=== PATIENT | female | born 1995 | race Caucasian/White ===

== ENCOUNTER 2018-01-23 13:00 | Outpatient (CLI) | payer BC, SELFPAY ==
[2018-01-23 13:25] VITALS: BMI 30.9
[2018-01-23 14:03] LABS: ROM Internal Control Test YES-OK TO RESULT pt. (Internal QC); ROM Patient Test Negative (Negative)
--- NOTE | 2018-01-23 17:53 | OB.TRI.NOTE ---
History of Present Illness Date of Service: 01/23/18 Was patient seen by the physician?: No Reason For Visit: R/O ROM Date of Service: 01/23/18 Final BIANCA: 03/08/18 Final BIANCA Source: LMP Gestational age: 33 Weeks and 5 Days History of Present Illness: Patient reports she was sitting on the couch and felt a larger gush of fluid come out of vagina. Patient reports she has had copious vaginal discharge with this but she is unsure if her bag of acevedo broke. Denies vaginal bleeding, denies cramping/contractions, denies decreased movement. Home Medications Medication Instructions Recorded Aspirin, Baby 1 tab PO DAILY 01/23/18 Vits [Prenatabs FA ] 1 tablet PO DAILY 01/23/18 Allergies No Known Allergies Allergy (Verified 01/23/18 13:26) - Pertinent Past Medical History Pertinent Past Medical History: Hx of depression - not currently taking medications Otherwise noncontributory Physical Exam Vitals: See nursing exam and vitals NST - FHR Rate Baby A Baseline: 120 Variability:: Moderate Accelerations:: 15 x 15 Decelerations:: None NST Reactive:: Yes, Appropriate for gestational age FHR Category:: Category I Uterine Activity:: Uterine irritability noted on monitor Impression/Plan 22 y/o @ 33+ weeks, R/O PPROM - negative, Category I FHT P: 1) Discharge patient to home 2) [facility] teaching and PTL precautions reviewed Maria Alejandra Nation CNM
--- NOTE | 2018-01-23 18:01 | OB.TRI.HP_ITS ---
History of Present Illness Date of Service: 01/23/18 Was patient seen by the physician?: No Reason For Visit: R/O ROM Date of Service: 01/23/18 Final BIANCA: 03/08/18 Final BIANCA Source: LMP Gestational age: 33 Weeks and 5 Days History of Present Illness: Patient reports she was sitting on the couch and felt a larger gush of fluid come out of vagina. Patient reports she has had copious vaginal discharge with this but she is unsure if her bag of acevedo broke. Denies vaginal bleeding, denies cramping/contractions, denies decreased movement. Home Medications Medication Instructions Recorded Aspirin, Baby 1 tab PO DAILY 01/23/18 Vits [Prenatabs FA ] 1 tablet PO DAILY 01/23/18 Allergies No Known Allergies Allergy (Verified 01/23/18 13:26) - Pertinent Past Medical History Pertinent Past Medical History: Hx of depression - not currently taking medications Otherwise noncontributory Physical Exam Vitals: See nursing exam and vitals NST - FHR Rate Baby A Baseline: 120 Variability:: Moderate Accelerations:: 15 x 15 Decelerations:: None NST Reactive:: Yes, Appropriate for gestational age FHR Category:: Category I Uterine Activity:: Uterine irritability noted on monitor Impression/Plan 22 y/o @ 33+ weeks, R/O PPROM - negative, Category I FHT P: 1) Discharge patient to home 2) [facility] [place] teaching and PTL precautions reviewed Maria Alejandra Nation CNM
== END 2018-01-23 14:35 | disposition home or self-care (01) ==
LOC: WPOUT 13:18 → WP 01-25 13:47
PROVIDERS: Visit Provider Advanced Practice Midwife
DX: Z34.03 Encounter for supervision of normal first pregnancy, third trimester (principal)
CPT/HCPCS: 59025; 59050; 84112; 99218; G0378

== ENCOUNTER 2018-02-15 21:27 | Outpatient (CLI) | payer BC, SELFPAY ==
[2018-02-15 22:12] VITALS: BMI 32.2
[2018-02-15 22:12] LABS: Mucous, Urine 0 SEEN /hpf (<or=2+)
[2018-02-15 22:29] LABS: Color, Urine Yellow (Yellow); Glucose, Dipstick Normal (Normal); Ketone-Dipstick Negative (Negative); Leukocyte Esterase-Dipstick Negative /ul (Negative); Nitrite-Dipstick Negative (Negative); Occult Blood-Urine Negative /ul (Negative); Protein-Dipstick Negative (Negative); Urine Bilirubin Dipstick Negative (Negative); Urine Clarity Cloudy (Clear); Urine Urobilinogen Normal (Normal)
[2018-02-15 22:31] LABS: AST(SGOT) 12 U/L (15-37); Alanine Aminotransfer ALT/SGPT 15 U/L (13-56); Creatinine, Serum 0.69 mg/dL (0.55-1.02); EST Glomerular Filtration Rate 111 mL/min (>60); Est Glom Filt Rate - Afr Amer 134 mL/min (>60); Estimated Creatinine Clearance 94.87 ml/min; Uric Acid 3.3 mg/dL (2.6-6.0)
[2018-02-15 22:32] LABS: Hematocrit 36.5 % (37-47); Hemoglobin 11.9 g/dl (12.0-15.0); Mean Corp Hgb Conc 32.6 g/gl (32-36); Mean Corpuscular Hgb 27.7 pg (27.0-32.0); Mean Corpuscular Volume 84.9 fL (81-99); Mean Platelet Vol. 9.9 fl (6.2-12.0); Platelet Count 160 K/mm3 (150-450); RBC Distribution Width CV 13.6 % (11.6-14.6); RBC Distribution Width SD 41.7 fl (35.1-43.9); White Blood Count 10.1 K/mm3 (4.4-11.0)
[2018-02-15 22:38] LABS: Scan Indicated on CBC? Y/N NO
[2018-02-15 22:41] LABS: Prothrombin Time (Protime)PT. 13.4 SECONDS (11.7-14.9)
[2018-02-15 22:42] LABS: Partial Thromboplast Time 24.5 Seconds (24.1-36.2)
[2018-02-15 22:53] LABS: Amorphous Sediment 2+
[2018-02-15 22:54] LABS: Hyaline Cast 0-5 SEEN /lpf (0-5)
[2018-02-15 22:55] LABS: Bacteria RARE /hpf (None Seen); White Blood Cells 0-5 SEEN /hpf (0-5)
[2018-02-15 22:56] LABS: Red Blood Cells-Urine 0-5 SEEN /hpf (0-5); Transitional Epithelial - Ur 0 SEEN /hpf (0-5)
[2018-02-15 22:57] LABS: Squamous Epithelial Cells - UA 0-5 SEEN /hpf (5-10)
[2018-02-15 23:45] LABS: Protein, Urine (Random) 14.9 mg/dL (<11.9); Protein:Creat Ratio 180 mg/g CRE (0-200)
[2018-02-17 13:52] LABS: 24HR. Urine Creatinine 1.19 g/24 HR (0.70-1.90)
[2018-02-17 17:37] LABS: 24HR. UA Prot. Total Volume 3500 mL; Urine Protein (24 Hour) 7.2 mg/dL (<11.9)
--- NOTE | 2018-03-12 10:38 | OB.TRI.NOTE ---
History of Present Illness Date of Service: 02/15/18 Was patient seen by the physician?: No Reason For Visit: PRE E Date of Service: 02/15/18 Final BIANCA Source: LMP History of Present Illness: Presented to L&D with headache. Took BP and 131/91,138/99, 148/103. Home Medications Medication Instructions Recorded Vits [Prenatabs FA ] 1 tablet PO DAILY 01/23/18 Ferrous Sulfate 325 mg PO DAILY@0800 tablet 02/28/18 Oxycodone [Oxyir] 5 - 10 mg PO Q4H PRN PRN 7 Days 02/28/18 #20 tab Allergies No Known Allergies Allergy (Verified 02/15/18 22:14) NST - FHR Rate Baby A Baseline: 115 Variability:: Moderate Accelerations:: 15 x 15 Decelerations:: None NST Reactive:: Yes FHR Category:: Category I Uterine Activity:: Irregular Impression/Plan A: 22 year old 37w EGA Headache P: 1) Labs normal, NST reactive 2) Start 24hr Urine, return to office in 2 days for evaluation and BP check. Pre-e risks reviewed. 3) NST reactive. BP stable on unit. Aida Ortiz CNM
--- NOTE | 2018-03-12 10:43 | OB.TRI.HP_ITS ---
History of Present Illness Date of Service: 02/15/18 Was patient seen by the physician?: No Reason For Visit: PRE E Date of Service: 02/15/18 Final BIANCA Source: LMP History of Present Illness: Presented to L&D with headache. Took BP and 131/91,138/99, 148/103. Home Medications Medication Instructions Recorded Vits [Prenatabs FA ] 1 tablet PO DAILY 01/23/18 Ferrous Sulfate 325 mg PO DAILY@0800 tablet 02/28/18 Oxycodone [Oxyir] 5 - 10 mg PO Q4H PRN PRN 7 Days 02/28/18 #20 tab Allergies No Known Allergies Allergy (Verified 02/15/18 22:14) NST - FHR Rate Baby A Baseline: 115 Variability:: Moderate Accelerations:: 15 x 15 Decelerations:: None NST Reactive:: Yes FHR Category:: Category I Uterine Activity:: Irregular Impression/Plan A: 22 year old 37w EGA Headache P: 1) Labs normal, NST reactive 2) Start 24hr Urine, return to office in 2 days for evaluation and BP check. Pre -e risks reviewed. 3) NST reactive. BP stable on unit. Aida Ortiz CNM
== END 2018-02-16 00:15 | disposition home or self-care (01) ==
LOC: WPOUT 21:32 → WP 21:32
PROVIDERS: Advanced Practice Midwife; Visit Provider Obstetrics & Gynecology
DX: O26.893 Other specified pregnancy related conditions, third trimester (principal); R51 Headache; Z3A.37 37 weeks gestation of pregnancy
CPT/HCPCS: 36415; 59025; 59050; 81001; 82565; 82570; 84156; 84450; 84460; 84550; 85027; 85610; 85730; 99218; A4216; G0378

== ENCOUNTER 2018-02-24 16:00 | Inpatient (IN) | payer BC, SELFPAY ==
[2018-02-24 17:11] LABS: Hematocrit 36.6 % (37-47); Hemoglobin 11.9 g/dl (12.0-15.0); Mean Corp Hgb Conc 32.5 g/gl (32-36); Mean Corpuscular Hgb 27.4 pg (27.0-32.0); Mean Corpuscular Volume 84.3 fL (81-99); Mean Platelet Vol. 10.5 fl (6.2-12.0); Platelet Count 153 K/mm3 (150-450); RBC Distribution Width CV 13.8 % (11.6-14.6); RBC Distribution Width SD 42.5 fl (35.1-43.9); Red Blood Count 4.34 M/mm3 (4.2-5.4); White Blood Count 10.2 K/mm3 (4.4-11.0)
[2018-02-24 17:14] LABS: Scan Indicated on CBC? Y/N NO
[2018-02-24 17:31] LABS: AST(SGOT) 12 U/L (15-37); Alanine Aminotransfer ALT/SGPT 15 U/L (13-56); Creatinine, Serum 0.57 mg/dL (0.55-1.02); EST Glomerular Filtration Rate 139 mL/min (>60); Est Glom Filt Rate - Afr Amer 168 mL/min (>60); Uric Acid 3.7 mg/dL (2.6-6.0)
[2018-02-24 17:46] LABS: Partial Thromboplast Time 24.1 Seconds (24.1-36.2); Prothrombin Time (Protime)PT. 13.2 SECONDS (11.7-14.9)
[2018-02-24 17:53] VITALS: BMI 32.6
[2018-02-24 18:04] LABS: Protein, Urine (Random) < 6.0 mg/dL (<11.9)
[2018-02-24] MEDS: 0.9% Saline Lock 10 ML Syringe IV (19:11)
[2018-02-24] MEDS: miSOPROStol 25 MCG TABLET VAGINAL ×2 (19:19→23:24)
--- NOTE | 2018-02-24 19:23 | PCM.HP.OB ---
- Problem List (1) Gestational hypertension Status: Acute Qualifiers: Trimester: third trimester Qualified Code(s): O13.3 - Gestational [-induced] hypertension without significant proteinuria, third trimester History Date of Admission: 02/24/18 Final BIANCA: 03/03/18 Final BIANCA Source: US <20 weeks Gestational age: 39 Weeks and 0 Days History of this : Uncomplicated course noted. Transient hypertension noted during 3rd trimester, patient had been monitoring blood pressures at home and blood pressures have ranged from 120-130/80s most days. Over last 4 days patient reports increased pedal and hand swelling and headaches. Today at home, patient reports BP = 120/90 with follow-up blood pressure average in office 149/106. Pertinent Past Medical History: course complicated by chronic anxiety and depression - patient never has been on medication for anxiety but had been on medication from [id number] for depression. Patient has been off medication now for 2 years. Allergies No Known Allergies Allergy (Verified 02/15/18 22:14) Current Medications Acetaminophen (Tylenol) 325 - 650 mg PO Q4H PRN PRN PRN Reason: PAIN OR FEVER >100.4F Al Hydroxide/Mg Hydroxide (Mylanta Ii) 15 - 30 ml PO Q4H PRN PRN PRN Reason: INDIGESTION Citric Acid/Sodium Citrate (Bicitra) 30 ml PO UD PRN Lactated Ringer's () 1,000 mls @ 50 mls/hr IV .Q20H [facility] Misoprostol (Cytotec) 25 mcg VAGINAL Q4H [facility] Stop: 02/25/18 15:01 Last Admin: 02/24/18 19:19 Dose: 25 mcg Nalbuphine HCl (Nubain) 5 - 10 mg IV Q3H PRN PRN PRN Reason: PAIN (4-10/10) Ondansetron HCl (Zofran) 4 mg IV Q8H PRN PRN PRN Reason: NAUSEA Promethazine HCl (Phenergan) 6.25 - 12.5 mg IV Q4H PRN PRN; Protocol PRN Reason: IF NAUSEA PERSISTS Sodium Chloride () 5 - 15 ml IV UD [facility] Last Admin: 02/24/18 19:11 Dose: 10 ml Smoking Status: Never smoker Alcohol: None Drug Use: none Number of Fetus(es): 1 Review of Systems Constitutional: Denies: Chills, Fever, Weight Change HEENT: Denies: Head Aches, Sinus Congestion, Sinus Drainage Cardiovascular: Denies: Chest Pain, Palpitations Respiratory: Denies: Cough, Shortness of breath at rest, Sputum production Gastrointestinal: Denies: Abdominal Pain, Nausea, Vomiting Genitourinary: Denies: Dysuria Gynecological: Denies: Vaginal bleeding, Vaginal discharge, Vaginal itching Musculoskeletal: Denies: Joint Pain, Joint Tenderness Skin: Denies: Rash, Wounds Neurological: Denies: Numbness, Tingling, Focal weakness Psychiatric: Denies: Anxiety, Depression, Homicidal Ideations, Suicidal Ideations Hematologic/ Lymphatic: Denies: Easy Bruising, Easy Bleeding Physical Exam Vitals: See nursing note for vital signs - most recent BP = 136/97 FHT baseline 120, moderate variability, + accels, no decels Ctx irregular on tocometer, not palpable General: Alert, Oriented x3, No apparent distress Cardiovascular: Regular rate, Regular Rhythm Lungs: Normal air movement Abdomen: Gravid, Appropriate for Gestational Age Extremities:: No edema, No tenderness/swelling Estimated gestational size: Appropriate for gestational size Presentation: Cephalic Cervix Dilation (cm): 0.5 Station: -3 Effacement (%): 50 Assessment/Plan Active and Suspected Problems Gestational hypertension (Acute) 22 y/o @ 38.4 weeks, Gestational HTN, Category I FHT, Cytotec Induction P: 1) Plan of care reviewed with Dr. Sherwood - decision for IOL at this time for GHTN 2) Cytotec 25mg PV q 4 hours 3) IV Heplock placed 4) Admission and pre-eclampsia blood work drawn and within normal limits 5) Consider use of vasquez catheter once cervix 1 cm dilated, anticipate use of IV pitocin per protocol once cervix 2-3 cm dilated and soft 6) Reassess SVE PRN Maria Alejandra Nation CNM
[2018-02-24] MEDS: Acetaminophen 325 MG Tablet PO (19:52)
--- NOTE | 2018-02-24 20:13 | HP.PCM_ITS ---
- Problem List (1) Gestational hypertension Status: Acute Qualifiers: Trimester: third trimester Qualified Code(s): O13.3 - Gestational [ -induced] hypertension without significant proteinuria, third trimester History Date of Admission: 02/24/18 Final BIANCA: 03/03/18 Final BIANCA Source: US <20 weeks Gestational age: 39 Weeks and 0 Days History of this : Uncomplicated course noted. Transient hypertension noted during 3rd trimester, patient had been monitoring blood pressures at home and blood pressures have ranged from 120-130/80s most days. Over last 4 days patient reports increased pedal and hand swelling and headaches. Today at home, patient reports BP = 120/90 with follow-up blood pressure average in office 149/106. Pertinent Past Medical History: course complicated by chronic anxiety and depression - patient never has been on medication for anxiety but had been on medication from [id number] for depression. Patient has been off medication now for 2 years. Allergies No Known Allergies Allergy (Verified 02/15/18 22:14) Current Medications Acetaminophen (Tylenol) 325 - 650 mg PO Q4H PRN PRN PRN Reason: PAIN OR FEVER >100.4F Al Hydroxide/Mg Hydroxide (Mylanta Ii) 15 - 30 ml PO Q4H PRN PRN PRN Reason: INDIGESTION Citric Acid/Sodium Citrate (Bicitra) 30 ml PO UD PRN Lactated Ringer's () 1,000 mls @ 50 mls/hr IV .Q20H [facility] Misoprostol (Cytotec) 25 mcg VAGINAL Q4H [facility] Stop: 02/25/18 15:01 Last Admin: 02/24/18 19:19 Dose: 25 mcg Nalbuphine HCl (Nubain) 5 - 10 mg IV Q3H PRN PRN PRN Reason: PAIN (4-10/10) Ondansetron HCl (Zofran) 4 mg IV Q8H PRN PRN PRN Reason: NAUSEA Promethazine HCl (Phenergan) 6.25 - 12.5 mg IV Q4H PRN PRN; Protocol PRN Reason: IF NAUSEA PERSISTS Sodium Chloride () 5 - 15 ml IV UD [facility] Last Admin: 02/24/18 19:11 Dose: 10 ml Smoking Status: Never smoker Alcohol: None Drug Use: none Number of Fetus(es): 1 Review of Systems Constitutional: Denies: Chills, Fever, Weight Change HEENT: Denies: Head Aches, Sinus Congestion, Sinus Drainage Cardiovascular: Denies: Chest Pain, Palpitations Respiratory: Denies: Cough, Shortness of breath at rest, Sputum production Gastrointestinal: Denies: Abdominal Pain, Nausea, Vomiting Genitourinary: Denies: Dysuria Gynecological: Denies: Vaginal bleeding, Vaginal discharge, Vaginal itching Musculoskeletal: Denies: Joint Pain, Joint Tenderness Skin: Denies: Rash, Wounds Neurological: Denies: Numbness, Tingling, Focal weakness Psychiatric: Denies: Anxiety, Depression, Homicidal Ideations, Suicidal Ideations Hematologic/ Lymphatic: Denies: Easy Bruising, Easy Bleeding Physical Exam Vitals: See nursing note for vital signs - most recent BP = 136/97 FHT baseline 120, moderate variability, + accels, no decels Ctx irregular on tocometer, not palpable General: Alert, Oriented x3, No apparent distress Cardiovascular: Regular rate, Regular Rhythm Lungs: Normal air movement Abdomen: Gravid, Appropriate for Gestational Age Extremities:: No edema, No tenderness/swelling Estimated gestational size: Appropriate for gestational size Presentation: Cephalic Cervix Dilation (cm): 0.5 Station: -3 Effacement (%): 50 Assessment/Plan Active and Suspected Problems Gestational hypertension (Acute) 22 y/o @ 38.4 weeks, Gestational HTN, Category I FHT, Cytotec Induction P: 1) Plan of care reviewed with Dr. Sherwood - decision for IOL at this time for GHTN 2) Cytotec 25mg PV q 4 hours 3) IV Heplock placed 4) Admission and pre-eclampsia blood work drawn and within normal limits 5) Consider use of vasquez catheter once cervix 1 cm dilated, anticipate use of IV pitocin per protocol once cervix 2-3 cm dilated and soft 6) Reassess SVE PRN Maria Alejandra Nation CNM
[2018-02-25] MEDS: miSOPROStol 25 MCG TABLET VAGINAL (03:29)
[2018-02-25] MEDS: 0.9% Saline Lock 10 ML Syringe IV (03:42)
[2018-02-25] MEDS: Ondansetron 4 MG/2 ML Vial IV ×3 (03:42→22:55)
[2018-02-25] MEDS: Acetaminophen 325 MG Tablet PO ×3 (06:27→17:55)
--- NOTE | 2018-02-25 07:45 | PCM.PN.OB ---
Patient Problems: Active and Suspected Problems Gestational hypertension (Acute) Subjective: Patient reports ability to sleep throughout night. Denies any persistent BONILLA, scotoma or RUQ pain. Patient has received 3 doses of cytotec thus far - plan for repeat SVE now to assess for cervical change. Patient reporting cramps are feeling stronger and more regular. Objective: FHT baseline 120, moderate variability, no decels, + accels Ctx irregular q 1-5 minutes, mildly strong to palpation SVE = unchanged FT/ 75/-2, soft - Physical Exam General: Alert, Oriented x3, Cooperative HEENT: Atraumatic, Normocephalic Neck: Supple Lungs: Clear to auscultation, Normal air movement Cardiovascular: Regular rate, Regular Rhythm, No murmurs Abdomen: Soft, Non Tender, Gravid, Appropriate for Gestational Age Extremities: No edema, Capillary Refill Less than 3 Seconds, No Calf Tenderness Skin: No rashes, No breakdown Musculoskeletal: No Tenderness to Palpation of Joints or Extremities Neurological: Cranial nerves II-XII grossly intact, Deep Tendon Reflexes 2+/4 and Symmetrical Psych/Mental Status: Normal Affect, Appropriate, Alert and oriented to time, place, person, mood and affect Weight: 173 lb Body Mass Index (BMI) 32.6 Intake and Output for Last 24 Hours 02/23/18 02/24/18 02/25/18 23:59 23:59 23:59 Intake Total 1450 / 1450 Output Total 2400 / 2400 Balance -950 / -950 Laboratory Tests Past 24 Hrs 02/24/18 02/24/18 02/24/18 16:55 16:55 16:55 WBC 10.2 RBC 4.34 Hgb 11.9 L Hct 36.6 L MCV 84.3 MCH 27.4 MCHC 32.5 RDW 13.8 RDW Differential 42.5 Plt Count 153 MPV 10.5 PT 13.2 INR 1.0 APTT 24.1 Creatinine 0.57 Est GFR (MDRD) Af Amer 168 Est GFR (MDRD) Non-Af 139 Uric Acid 3.7 AST 12 L ALT 15 U Random Total Protein Urine Creatinine Protein/Creatinin Ratio Blood Type Antibody Screen 02/24/18 02/24/18 16:55 17:20 WBC RBC Hgb Hct MCV MCH MCHC RDW RDW Differential Plt Count MPV PT INR APTT Creatinine Est GFR (MDRD) Af Amer Est GFR (MDRD) Non-Af Uric Acid AST ALT U Random Total Protein < 6.0 Urine Creatinine 19.70 Protein/Creatinin Ratio TNP Blood Type A POSITIVE Antibody Screen NEGATIVE Medical Necessity - Tobacco Use Smoking Status: Never smoker Assessment/Plan Active and Suspected Problems Gestational hypertension (Acute) 22 y/o @ 38.5 weeks, IOL for GHTN, Category I FHT P: 1) Bernstein catheter with pitocin started at this time per protocol 2) Continue to monitor BP closely 3) Reassess SVE PRN Maria Alejandra Nation CNM
[2018-02-25] MEDS: Oxytocin 30 units/NS 500 ml 30 UNITS/500 ML IV.SOLN IV (08:34)
[2018-02-25] MEDS: Lactated Ringers 1,000 ML 50 ML IV ×4 (08:35→19:38)
[2018-02-25] MEDS: fentaNYL-bupivacaine (epidural) 100 ML BAG EPIDURAL ×3 (10:18→18:58)
--- NOTE | 2018-02-25 12:49 | PCM.PN.BLA ---
Progress Note S: Patient comfortable with epidural O: cvx /-2 AROM clear fluid, IUPC placed fhts 115 with mod variability, accels tocos Q2-4 min A&P: continue pitocin induction Gest htn - BP's reviewed & normal
[2018-02-25] MEDS: Amnioinfusion- 0.9% NS 1,000 ML IV.SOLN. INTRA-UTER (17:15)
--- NOTE | 2018-02-25 17:15 | PCM.PN.BLA ---
Progress Note S: Patient comfortable with epidural O: cvx - 5/80/-2 FSE placed fhts 110 with minimal to moderate variability, accels, mild variables tocos Q2-4 min A&P: continue pit induction BP's normal continue amnioinfusion
[2018-02-26] VITALS (27 sets, daily range): BP systolic 90–124; BP diastolic 40–70; PULSE 75–118; RESP 14–18; TEMP 36.3–37.6; O2SAT 97–100
[2018-02-26] MEDS: fentaNYL-bupivacaine (epidural) 100 ML BAG EPIDURAL (00:02)
[2018-02-26] MEDS: Sodium Citrate/Citric Acid 30 ML UDC PO (00:18)
[2018-02-26] MEDS: Cefazolin 2 GM in 0.9% Normal Saline 100 ML IV (00:37)
[2018-02-26] MEDS: Oxytocin 30 units/NS 500 ml 30 UNITS/500 ML IV.SOLN 167 UNITS IV (00:52)
--- NOTE | 2018-02-26 01:51 | PCM.OB.CSR ---
Delivery Final BIANCA: 03/08/18 Gestational age: 38 Weeks and 4 Days Indications: Patient was induced for gestational hypertension. She had prolonged decelerations and was C/C/+0. The decelerations resolved & patient began pushing. The FHT had minimal variability and another deceleration. Decision made to proceed with section for distress in patient remote from vaginal delivery. Indications for : Distress Description of Procedure: Patient taken to OR where epidural anesthesia was dosed. She was prepped and draped in normal sterile fashion in a dorsal lithotomy position with a leftward tilt. After ensuring adequacy of anesthesia the Pfannensteil skin incision was made and carried through to the underlying fascia with a bovie. The fascia was incised in the midline and carried laterally with the Real scissors. The rectus muscles were in the midline and the peritoneum was entered bluntly. The bladder flap was dissected down carefully with the Metzenbaum scissors and blunt dissection. The uterus was incised in a transverse fashion and then extended with gentle cephalocaudad traction. The infant's head was grasped & elevated to the uterine incision. With good fundal pressure the infants head did not deliver. The right rectus muscles were carefully cut with bandage scissors. Again with good fundal pressure the head did not deliver. Vacuum was called for. The vacuum was placed on the head & with fundal pressure the infants head began to deliver. Vacuum released. The remainder of the head delivered once the vacuum was released. Shoulders & body easily followed. 3VC clamped & cut The was handed off to the waiting RN. The placenta was delivered w/ gentle traction and fundal massage. The uterus was exteriorized and cleared of all clots and debris. The uterine incision was closed with 1 vicryl suture in a running locked fashion. A uterine extension on the patient's left side was closed with running 1-0 vicryl and an additional figure of 8 suture. The bovie was used to further obtain further hemostasis of the uterine incision. A second imbricating layer of monocryl was placed. 2 additional figure of 8 sutures using 1-0 vicryl were placed to obtain excellent hemostasis on the uterine incision. The uterus was returned to the peritoneal cavity. The pelvis was irrigated & then cleared of all clots and debris. The uterine incision was reexamined and found to be hemostatic. Some rosa was placed over the uterine incision and bladder flap due to the denuded areas. The parietal peritoneum was reapproximated with running 3-0 vicryl suture. The fascia was closed with looped PDS suture in a running standard fashion. The subcutaneous tissue was examined & any bleeding bovie cauterized. The subcutaneous tissue was reapproximated with plain gut suture. The skin was closed in a subcuticular fashion by the [employer] with me present in the labor and delivery suite. I performed the remainder of the procedure w/ assistance. Amniotic Membrane Rupture Type: Artificial Amniotic Fluid Description: Clear Placenta Disposition: [facility] Drain: Bernstein to straight drain Fluids Replaced: 1200ml crystalloid Cord Entanglement: None Cord Vessel Description: 3 Vessels Esitmated Blood Loss (ml): 800ml Infant Gender: Male (1 minute): 0 (5 minute): 7 - 8 at 10 minutes Pre-op Antibiotic Given: Ancef 2 grams IV x1 Complications: None
--- NOTE | 2018-02-26 02:34 | NURSING ---
Janet Nurse anes called to room for low bp
[2018-02-26] MEDS: Lactated Ringers 1,000 ML 50 ML IV (03:35)
[2018-02-26] MEDS: Ketorolac 30 MG/ML Syringe IV ×3 (06:15→18:16)
[2018-02-26] MEDS: Aspirin 81 MG TAB.CHEW PO (08:38)
[2018-02-26] MEDS: Magnesium Oxide 400 MG Tablet 200 MG PO (10:00)
[2018-02-26] MEDS: Lactated Ringers 1,000 ML 100 ML IV (13:15)
--- NOTE | 2018-02-26 16:30 | NURSING ---
1615 While rounding, Mom states that nursing has been going well. We discussed prior breast massage and hand expression prior to feeds. Mom and dad shown how to hand express. Mom has her pump at home and Grandma will be bringing in her pump to be shown how to use it. Parents state that baby has been nursing well since and are very happy. Grandma's were in the room and both breastfed so will be a great support to Mom with her needs. Encouraged Mom to call if any further questions or concerns or if I can assist in anyway. Marquis PITT
[2018-02-26] MEDS: 0.9% Saline Lock 10 ML Syringe IV ×2 (18:45→18:57)
[2018-02-27] MEDS: 0.9% Saline Lock 10 ML Syringe IV ×3 (00:01→12:20)
[2018-02-27] MEDS: Ketorolac 30 MG/ML Syringe IV ×3 (00:01→12:20)
[2018-02-27 00:30] VITALS: BP 121/71; PULSE 118; RESP 18; TEMP 36.8; O2SAT 97
[2018-02-27 04:40] VITALS: BP 113/51; PULSE 94; RESP 18; TEMP 36.6; O2SAT 96
[2018-02-27 06:16] LABS: Hematocrit 26.5 % (37-47); Hemoglobin 8.6 g/dl (12.0-15.0); Mean Corp Hgb Conc 32.5 g/gl (32-36); Mean Corpuscular Hgb 28.2 pg (27.0-32.0); Mean Corpuscular Volume 86.9 fL (81-99); Mean Platelet Vol. 9.9 fl (6.2-12.0); Platelet Count 128 K/mm3 (150-450); RBC Distribution Width CV 13.9 % (11.6-14.6); RBC Distribution Width SD 42.8 fl (35.1-43.9); Red Blood Count 3.05 M/mm3 (4.2-5.4); White Blood Count 20.8 K/mm3 (4.4-11.0)
[2018-02-27 06:17] LABS: Scan Indicated on CBC? Y/N NO
--- NOTE | 2018-02-27 08:32 | PCM.PN.OB ---
Patient Problems: Active and Suspected Problems Gestational hypertension (Acute) Subjective: Doing well per patient and nursing staff. Ambulating and taking PO without difficulty. Voiding and passing flatus. Denies headache, scotoma, chest pain, SOB, leg pain, increased vaginal bleeding/clots. Pain controlled, abd binder applied. without difficulty. - Physical Exam General: Alert, Oriented x3, Cooperative Lungs: Clear to auscultation, Normal air movement, No rhonchi, No wheeze Cardiovascular: Regular rate, Regular Rhythm, No murmurs Abdomen: Bowel Sounds Present, - - Dressing remains intact with no bleeding. Fundus firm 2 below U. Extremities: No edema Neurological: Deep Tendon Reflexes 2+/4 and Symmetrical Psych/Mental Status: Normal Affect, Appropriate Vital Signs Temp Pulse Resp BP Pulse Ox 97.8 F 94 18 113/51 L 96 02/27/18 04:40 02/27/18 04:40 02/27/18 04:40 02/27/18 04:40 02/27/18 04:40 Oxygen Delivery Method Room Air Weight: 173 lb Body Mass Index (BMI) 32.6 Intake and Output for Last 24 Hours 02/25/18 02/26/18 02/27/18 23:59 23:59 23:59 Intake Total 8267 / 8267 4613 / 4613 Output Total 4850 / 4850 2400 / 2400 2099 / 2100 Balance 3417 / 3417 2213 / 2213 -2100 / -2100 Laboratory Tests Past 24 Hrs 02/27/18 06:05 WBC 20.8 H RBC 3.05 L Hgb 8.6 L Hct 26.5 L MCV 86.9 MCH 28.2 MCHC 32.5 RDW 13.9 RDW Differential 42.8 Plt Count 128 L MPV 9.9 Medical Necessity - Tobacco Use Smoking Status: Never smoker Assessment/Plan Active and Suspected Problems Gestational hypertension (Acute) A:POD #1 section Gestation HTN P: 1) Continue with routine PP care 2) BP reviewed and normal 3) Hgb 8.6, asymptomatic, repeat CBC tomorrow am 4) notified of patient status.
[2018-02-27] MEDS: Prenatal Vits Tablet 1 TABLET PO (09:08)
[2018-02-27 09:31] VITALS: BP 112/65; PULSE 98; RESP 16; TEMP 37
[2018-02-27 12:31] VITALS: BP 135/87; PULSE 102; RESP 16; TEMP 37.6
[2018-02-27] MEDS: Aspirin 81 MG TAB.CHEW PO (12:35)
[2018-02-27] MEDS: Magnesium Oxide 400 MG Tablet 200 MG PO (12:35)
[2018-02-27] MEDS: oxyCODONE 5 MG Tablet PO (17:14)
[2018-02-27] MEDS: Senna/Docusate Sodium 1 Tablet PO (17:16)
[2018-02-27 17:25] VITALS: BP 138/87; PULSE 90; RESP 16; TEMP 36.8
[2018-02-27 20:31] VITALS: BP 126/74; PULSE 104; RESP 18; TEMP 36.7; O2SAT 98
[2018-02-27] MEDS: Ibuprofen 600 MG Tablet PO (22:05)
[2018-02-28 02:08] VITALS: BP 113/70; PULSE 81; RESP 18; TEMP 36.6; O2SAT 97
[2018-02-28] MEDS: oxyCODONE 5 MG Tablet PO ×2 (02:18→18:16)
[2018-02-28 05:00] LABS: Absolute Lymphocyte Count 1.98 X10^3/ul (0.83-4.51); Absolute Neutrophil Count 13.8 X10^3/uL (2.0-7.7); Basophil# 0.04 X10^3/uL; Basophil% 0.2 % (0-1); Eosinophil# 0.19 X10^3/uL; Eosinophils% 1.1 % (0-5); Hematocrit 26.3 % (37-47); Hemoglobin 8.4 g/dl (12.0-15.0); Lymphocyte # 1.98 X10^3/ul (4.0); Lymphocyte % 11.5 % (19-41); Mean Corp Hgb Conc 31.9 g/gl (32-36); Mean Corpuscular Hgb 27.8 pg (27.0-32.0); Mean Corpuscular Volume 87.1 fL (81-99); Mean Platelet Vol. 9.7 fl (6.2-12.0); Monocyte# 0.89 X10^3/uL; Monocyte% 5.2 % (0-10); Neutrophil # 13.76 X10^3/uL (2.7-7.7); Neutrophil % 80.1 % (47-70); Platelet Count 162 K/mm3 (150-450); RBC Distribution Width CV 13.8 % (11.6-14.6); RBC Distribution Width SD 42.4 fl (35.1-43.9); Red Blood Count 3.02 M/mm3 (4.2-5.4); White Blood Count 17.2 K/mm3 (4.4-11.0)
[2018-02-28 05:09] LABS: POSITIVE COUNT NO; POSITIVE DIFFERENTIAL NO; POSITIVE MORPHOLOGY NO
[2018-02-28] MEDS: Ibuprofen 600 MG Tablet PO ×2 (08:54→22:24)
[2018-02-28 08:58] VITALS: BP 115/80; PULSE 77; RESP 16; TEMP 36.1; O2SAT 97
--- NOTE | 2018-02-28 10:39 | PCM.DC.SUM ---
Discharge Date and Diagnosis - Problem List Patient Problems: Active and Suspected Problems Gestational hypertension (Acute) Date of Admission: 02/24/18 Date of Discharge: 02/28/18 - Primary Discharge Diagnosis Active and Suspected Problems Gestational hypertension (Acute) Hospital Course and Treatment Operations: None Summary of Care Provided: The patient is a 22 year old F [] Discharge Diet: No Restrictions Discharge Activity: May not drive while taking narcotic pain medications., May Shower May resume sexual activity in: 4-6 weeks Weight Bearing Status: Weight bearing as tolerated Lifting Restrict to (lbs):: 10 Call your doctor if your incision/area has: Continuous Slow Oozing, Sudden Increased Bleeding, Increased Pain/ Swelling, Increased Redness, Foul Smelling Discharge, Swelling at the incision site Call your doctor if you observe: Fever of 101 or Higher, Coldness, Increased Pain, Numbness or Tingling, Change in Color, Inability to urinate, Inability to have a bowel movement, Using more than one pad per hour, Shortness of breath, Dizziness, Fainting spells, Swelling in the ankles, Chest pain, Prolonged hiccoughing, Increased palpitations (irregular heartbeat), Calf discomfort, Uncontrolled pain Cleanse incision/area with: Keep Dressing Clean & Dry Home Medications: Medications to take at Discharge Vits [Prenatabs FA ] 1 tablet PO DAILY 01/23/18 Oxycodone [Oxyir] 5 - 10 mg PO Q4H PRN PRN 7 Days #20 tab 02/28/18 Following Prescrptions Were Given to Patient: Oxycodone [Oxyir] 5 - 10 mg PO Q4H PRN PRN 7 Days #20 tab PRN Reason: Mod-Severe Pain (-07/28) Primary Care Physician: Care Physician,No Primary [Primary Care Provider] - Medical Necessity - Tobacco Use Smoking Status: Never smoker Meaningful Use Info Meaningful Use Diagnoses (Choose all that apply): None applicable
--- NOTE | 2018-02-28 10:47 | PN.OBGYN_ITS ---
Patient Problems: Active and Suspected Problems Gestational hypertension (Acute) Subjective: Doing well per patient and nursing staff. Ambulating and taking PO without difficulty. Voiding and passing flatus. without difficulty. Denies BONILLA,scotoma, chest pain, SOB, leg pain, or increased vaginal bleeding. Planning D/C home today. - Physical Exam General: Alert, Oriented x3, Cooperative Lungs: Clear to auscultation, Normal air movement, No rhonchi, No wheeze Cardiovascular: Regular rate, Regular Rhythm, No murmurs Abdomen: Bowel Sounds Present, Soft, - - Fundus firm 2 below U Extremities: No edema, - - DTR +2/4 bilateral patellar Psych/Mental Status: Normal Affect, Appropriate Vital Signs Temp Pulse Resp BP Pulse Ox 97.0 F L 77 16 115/80 97 02/28/18 08:58 02/28/18 08:58 02/28/18 08:58 02/28/18 08:58 02/28/18 08:58 Oxygen Delivery Method Room Air Weight: 173 lb Body Mass Index (BMI) 32.6 Intake and Output for Last 24 Hours 02/26/18 02/27/18 02/28/18 23:59 23:59 23:59 Intake Total 4613 / 4613 Output Total 2400 / 2400 2100 / 2100 Balance 2213 / 2213 -2100 / -2100 Laboratory Tests Past 24 Hrs 02/28/18 04:10 WBC 17.2 H RBC 3.02 L Hgb 8.4 L Hct 26.3 L MCV 87.1 MCH 27.8 MCHC 31.9 L RDW 13.8 RDW Differential 42.4 Plt Count 162 MPV 9.7 Immature Gran % (Auto) 1.900 H Neut % (Auto) 80.1 H Lymph % (Auto) 11.5 L [place] % (Auto) 5.2 Eos % (Auto) 1.1 Baso % (Auto) 0.2 Absolute Neuts (auto) 13.8 H Absolute Lymphs (auto) 1.98 Total Counted Not Reportable Medical Necessity - Tobacco Use Smoking Status: Never smoker Assessment/Plan Active and Suspected Problems Gestational hypertension (Acute) A: POD #2 section Gestational HTN P: 1) Discharge and instructions given. 2) Oxycodone for pain relief. Hgb 8.4, asymptomatic. Ferrous Sulfate 325mg PO once daily 3) Follow up in 5 days for BP check, RTC in 2 weeks for incision check, RTC in 6 weeks for PP visit 4) Planning OCP for control 5) Reviewed Pre-E warning signs and when to call. 6) D/C home today
--- NOTE | 2018-02-28 10:51 | DCINST_ITS ---
Discharge Activity: May not drive while taking narcotic pain medications., May Shower May resume sexual activity in: 4-6 weeks Weight Bearing Status: Weight bearing as tolerated Call your doctor if your incision/area has: Continuous Slow Oozing, Sudden Increased Bleeding, Increased Pain/ Swelling, Increased Redness, Foul Smelling Discharge, Swelling at the incision site Call your doctor if you observe: Fever of 101 or Higher, Coldness, Increased Pain, Numbness or Tingling, Change in Color, Inability to urinate, Inability to have a bowel movement, Using more than one pad per hour, Shortness of breath, Dizziness, Fainting spells, Swelling in the ankles, Chest pain, Prolonged hiccoughing, Increased palpitations (irregular heartbeat), Calf discomfort, Uncontrolled pain Cleanse incision/area with: Keep Dressing Clean & Dry Additional Instructions: If you experience any of the following, contact your healthcare provider. * Bleeding that soaks a pad every hour for 2 hours * Fever 100.4 or higher * Unrelieved incision or abdominal pain * Swelling, redness, discharge or bleeding from your incision or episiotomy site * Your incision begins to separate * Problems urinating (including inability to urinate or burning while urinating) . * Visual changes * Severe headache * Flu-like symptoms * Pain or redness in one of both of your breasts * Pain, warmth, tenderness or swelling in your legs, especially the calf area * Frequent nausea and vomiting * Symptoms of depression or anxiety If you experience any of the following, call 911 or go to the nearest Emergency Room. * Chest pain * Problems breathing * Seizure activity * Partial or complete paralysis of a body part, slurred speech, weakness or drooping of the face, or a sudden inability to walk or hold your balance Allergies/Adverse Reactions: Allergies No Known Allergies Allergy (Verified 02/15/18 22:14) Medications to take at Discharge Vits [Prenatabs FA ] 1 tablet PO DAILY 01/23/18 Ferrous Sulfate 325 mg PO DAILY@0800 tablet 02/28/18 Oxycodone [Oxyir] 5 - 10 mg PO Q4H PRN PRN 7 Days #20 tab 02/28/18 The following prescriptions were given: Oxycodone [Oxyir] 5 - 10 mg PO Q4H PRN PRN 7 Days #20 tab PRN Reason: Mod-Severe Pain (-07/28) Please Follow Up With: Jose Maria Sousa Primary Care Physician: Care Physician,No Primary [Primary Care Provider] -
[2018-02-28 12:00] VITALS: BP 117/63; PULSE 91; RESP 16; TEMP 36.1; O2SAT 98
[2018-02-28] MEDS: Acetaminophen 500 MG Tablet 1000 MG PO (13:54)
[2018-02-28] MEDS: Prenatal Vits Tablet 1 TABLET PO (13:54)
[2018-02-28 16:00] VITALS: BP 109/59; PULSE 85; RESP 16; TEMP 36.6; O2SAT 100
[2018-02-28 19:37] VITALS: BP 133/88; PULSE 81; RESP 18; TEMP 36.7; O2SAT 99
[2018-02-28] MEDS: Senna/Docusate Sodium 1 Tablet PO (22:22)
[2018-03-01 01:21] VITALS: BP 116/74; PULSE 81; RESP 18; TEMP 36.6; O2SAT 96
[2018-03-01] MEDS: Ibuprofen 600 MG Tablet PO (06:02)
[2018-03-01] MEDS: Senna/Docusate Sodium 1 Tablet PO (08:56)
[2018-03-01] MEDS: Prenatal Vits Tablet 1 TABLET PO (08:56)
[2018-03-01] MEDS: Ferrous Sulfate 325 MG Tablet PO (08:56)
[2018-03-01 10:00] VITALS: BP 110/79; PULSE 80; RESP 16; TEMP 36.9
--- NOTE | 2018-03-01 12:20 | CASEMGMT ---
Social Work Note Labor and Delivery Unit Social Work Assessment completed. Refer to documentation below for further details. Date of Referral: 03/01/2018 Time of Referral: 0650 Referred By: Dr. Alejandre Date of Intervention: 03/01/2018 Time of Intervention: 1220 Reason for Referral: Resources History obtained from: Medical record, mother of baby (MOB) and father of baby (FOB). Brief conversation with nursing staff who reports MOB has been tearful throughout hospital stay. Household composition: MOB and FOB live together in own home in [facility]. MOB reports home situation is safe and adequate. Patient's parent/guardian status: MARILEE Castillo and FOB Francesco Banerjee have been since 03-14-17, together since June 2015. Both parents are 24 years old. [place], Miguel Angel Banerjee, is the first child for both. Was able to speak with MOB privately, and MOB denies any form of abuse by FOB. Medical History: MOB is G1, P0 to 1 after delivering Miguel Angel. care starting at 6 weeks gestation. Infant born at 38 weeks, weighted 3068 grams, and Apgars 0-7-9 at 1-5-10 minutes of life. Baby born via emergency caesarian section. Educational Status: MOB has an associate degree, reports ability to read and write. Denies issues with learning or comprehension. 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 FOB works for [employer]. Infant Supplies: MOB reports to have all needed supplies to get started including car seat, crib, pack-n-play with bassinet attachment, clothing, diapers, wipes, bottles, and breast pump. Childcare/Caregiver(s): MOB, FOB, and then have a combination of family and a retail sales vitamin consultant when parents return to work. Transportation: No reported issues. Programs/Agencies Involved: No agency involvement at this time. Behavioral Health Issues: MOB reports history of depression and anxiety treated with antidepressants of Wellbutrin and Celexa. MOB reports the Wellbutrin worked well for the mood, but gave MOB nightmares. MOB reports the Celexa made MOB sleepy. MOB has had no medicine in two years. MOB denies any history of suicidal thoughts, plans, intent, or attempt; denies thoughts of harm to others. MOB did go to counseling a few years back at [facility] services. MOB endorses some depression and anxiety during this , that did have a referral for counseling but did not go due to changes of insurance and not having the best coverage. MOB denies any history of drug or alcohol use or abuse. No tobacco smoking either. Family/Social Stressors: MOB reports move from [facility] to [facility] just about a year ago, so as to be closer to FOBs work. MOB reports conception occurred soon after stopping control, and happened sooner that MOB was expecting. MOB reports at the time there were some stressors happening with MOB and FOB, and due to stressors and quick conception MOB had some ambivalence about . MOB reports to be happy to have Miguel Angel, to love the baby and feel a connection at this time. Support Systems: MOB reports MOBs mother and FOBs mother are both supports, both living about an hour away but both willing to come to MOB if the need arises for extra help. MOB reports her mother would be both practical and emotional support to MOB, and FOBs mother more practical support. MOB reports to have a neighbor who is helpful and has offered to help MOB and FOB when needed. FOB will be off of work for 6 weeks to help MOB with transition to home. Depression/Shaken Baby/Safe Sleeping: MOB and FOB both educated to depression and anxiety disorders, importance of speaking up and accepting support. Educated to safe sleeping and shaken baby as well. ASSESSMENT: MOB and FOB both providing input during social work visit. MOB appearing with relaxed motor activity when FOB present in room. MOB would give input, but at times FOB would interject and speak over MOB. Overall though, FOB was quiet not interrupting MOBs responses. When FOB provided some privacy for MOB to speak to psychotherapist social worker, MOB talked about feelings related to finding out about and some stressors in marriage, mostly involving communication between MOB and FOB. MOB denies any safety concerns with FOB, but does admit that is worried about MOB getting sleep and whether FOB will be willing to get up and help. Talked with MOB about coping skills for self, resting when baby is sleeping, changing expectations for self (such as housework) while transitioning into motherhood and getting used to the time it takes to care for a , and processed possible benefit of getting back into counseling. MOB talked about referral for counseling during , that going would have likely helped. MOB reporting desire to seek out more support at this time. MOB was cried intermittently during social work visit, both within presence of FOB and alone with this investment underwriter. MOB smiled however, with bright affect at other times. MOB plesant and friendly. MOB mood anxious, but also reporting to be looking forward to going home and getting into a routine at home. MOB reports will have help from FOB for 6 weeks, MOBs mother is coming tomorrow and FOBs mother the next day to help out. MOB reports will be willing to ask for help from support system if needed. MOB reports to have needed baby supplies and to feel a connection to the baby. MOB attentive to baby throughout social work visit, gentled, smiled at baby, and gazed at baby. Interventions: Reviewed with MOB a list of counseling options from MOBs insurances website. MOB chose to go with [facility] in [place]. Release of information signed. Follow up made for MOB with Kaelyn Vazquez for Thursday03-08-18 at 1400. Reviewed follow up with MOB and FOB together, both voicing this time and date will work out for MOB to go to. Provided MOB with list of [facility] resources including parent support programs, emergency crisis lines, counseling, domestic violence halfway, and in-kind support. Provided eligibility guidelines for WIC. P rovided information on Help Me grow, Safe sleeping, shaken baby, and handouts on coping skills to try at home. PLAN: MOB and baby discharging home today, multiple resources given, counseling referral in place and to have help from family. No other services requested or indicated. -CINDY Lyle, PAROLE BOARD MEMBER
--- NOTE | 2018-03-01 12:58 | PCM.PN.OB ---
Patient Problems: Active and Suspected Problems Gestational hypertension (Acute) Subjective: Patient sitting up with , reports that is going well at this time. Breastmilk is starting to come in, slight engorgement and soreness noted. No issues with ambulation and urination noted. Patient reports incision pain well controlled. Patient desires discharge today at this time. Objective: See nursing note for vital signs - patient is normotensive Nipples without cracks and blisters Abdomen NT x 4 quadrants, FF midline 1FB below umbilicus Dressing dry and intact Scant rubra lochia noted - Physical Exam General: Alert, Oriented x3 HEENT: Atraumatic, Normocephalic Neck: Supple Lungs: Clear to auscultation, Normal air movement Cardiovascular: Regular rate, Regular Rhythm Abdomen: Soft, Non Tender, Passing Flatus Extremities: No edema, Capillary Refill Less than 3 Seconds Skin: No rashes, No breakdown Musculoskeletal: No Tenderness to Palpation of Joints or Extremities Neurological: Cranial nerves II-XII grossly intact Psych/Mental Status: Normal Affect, Appropriate, Alert and oriented to time, place, person, mood and affect Vital Signs Temp Pulse Resp BP Pulse Ox 98.4 F 80 16 110/79 96 03/01/18 10:00 03/01/18 10:00 03/01/18 10:03/01/18 10:03/01/18 01:21 Oxygen Delivery Method Room Air Weight: 173 lb Body Mass Index (BMI) 32.6 Intake and Output for Last 24 Hours 02/27/18 02/28/18 03/01/18 23:59 23:59 23:59 Output Total 2099 Balance -2099 / -2099 Medical Necessity - Tobacco Use Smoking Status: Never smoker Assessment/Plan Active and Suspected Problems Gestational hypertension (Acute) A: 22 y/o G1 now P1, s/p LTCS, POD #3, GHTN - resolved, Hx of Depression/Anxiety P: 1) Discharge to home pending discharge 2) RTC on Thursday for BP visit - plan for incision check visit the following week 3) Patient has been tearful during hospital stay, Social Work consult ordered. Patient has been scheduled with a therapist for visit outpatient next week on Thursday03/08/18. 4) RTC for 6 weeks PP visit also with a provider. Maria Alejandra PUENTE
[2018-03-01] MEDS: oxyCODONE 5 MG Tablet PO (13:21)
[2018-03-01 13:43] VITALS: BP 125/80; PULSE 98; RESP 16; TEMP 36.6
== END 2018-03-01 14:45 | disposition home or self-care (01) | DRG 766 ==
PROVIDERS: Advanced Practice Midwife; Admitting Provider Obstetrics & Gynecology; Visit Provider Obstetrics & Gynecology
DX: O13.4 Gestational [pregnancy-induced] hypertension without significant proteinuria, complicating childbirth (principal); O76 Abnormality in fetal heart rate and rhythm complicating labor and delivery; Z3A.38 38 weeks gestation of pregnancy; Z37.0 Single live birth
CPT/HCPCS: 59025; 59050; 82565; 82570; 84156; 84450; 84460; 84550; 85025; 85027; 85610; 85730; 86850; 86900; 99218; J7030; J7050; J7120; A4216; G0378; J2405

== ENCOUNTER 2018-03-05 13:55 | Outpatient (CLI) | payer BC, SELFPAY | END 2018-03-05 16:00 | disposition home or self-care (01) | LOC: WPOUT 13:59 → WP 14:00 | PROVIDERS: Visit Provider Obstetrics & Gynecology | DX: O92.79 Other disorders of lactation (principal) | CPT/HCPCS: 96152 ==

== ENCOUNTER → 2018-03-11 12:08 | Outpatient (CLI) | payer BC, SELFPAY ==
[2018-03-11 12:43] LABS: Absolute Lymphocyte Count 1.98 X10^3/ul (0.83-4.51); Absolute Neutrophil Count 5.6 X10^3/uL (2.0-7.7); Basophil# 0.05 X10^3/uL; Basophil% 0.6 % (0-1); Eosinophil# 0.24 X10^3/uL; Eosinophils% 2.9 % (0-5); Hematocrit 35.6 % (37-47); Hemoglobin 11.3 g/dl (12.0-15.0); Lymphocyte # 1.98 X10^3/ul (4.0); Lymphocyte % 23.6 % (19-41); Mean Corp Hgb Conc 31.7 g/gl (32-36); Mean Corpuscular Hgb 26.5 pg (27.0-32.0); Mean Corpuscular Volume 83.6 fL (81-99); Mean Platelet Vol. 8.3 fl (6.2-12.0); Monocyte# 0.44 X10^3/uL; Monocyte% 5.2 % (0-10); Neutrophil # 5.59 X10^3/uL (2.7-7.7); Neutrophil % 66.6 % (47-70); Platelet Count 429 K/mm3 (150-450); RBC Distribution Width CV 13.6 % (11.6-14.6); RBC Distribution Width SD 41.1 fl (35.1-43.9); Red Blood Count 4.26 M/mm3 (4.2-5.4); White Blood Count 8.4 K/mm3 (4.4-11.0)
[2018-03-11 12:49] LABS: POSITIVE COUNT NO; POSITIVE DIFFERENTIAL NO; POSITIVE MORPHOLOGY NO
[2018-03-11 12:50] LABS: Partial Thromboplast Time 26.6 Seconds (24.1-36.2)
[2018-03-11 12:53] LABS: AST(SGOT) 13 U/L (15-37); Alanine Aminotransfer ALT/SGPT 23 U/L (13-56); BUN 12 mg/dL (7-18); EST Glomerular Filtration Rate 110 mL/min (>60); Est Glom Filt Rate - Afr Amer 133 mL/min (>60); Uric Acid 4.8 mg/dL (2.6-6.0)
[2018-03-11 12:54] LABS: International Normalized Ratio 1.1; Prothrombin Time (Protime)PT. 13.8 SECONDS (11.7-14.9)
== END ==
PROVIDERS: Visit Provider Obstetrics & Gynecology
DX: I10 Essential (primary) hypertension (principal)
CPT/HCPCS: 36415; 82565; 84450; 84460; 84520; 84550; 85025; 85610; 85730

== ENCOUNTER → 2018-10-18 17:27 | Outpatient (CLI) | payer BC, SELFPAY ==
[2018-10-18 19:33] LABS: Chlamydia Trachomatis by PCR Negative (Negative); Neisserai gonorrhoeae by PCR Negative (Negative); Probe Check PASS; Sample Adequacy Control PASS; Specimen Processing Control PASS
== END ==
PROVIDERS: Referring Provider Obstetrics & Gynecology; Visit Provider Obstetrics & Gynecology
DX: Z11.3 Encounter for screening for infections with a predominantly sexual mode of transmission (principal)
CPT/HCPCS: 87491; 87591

== ENCOUNTER → 2018-10-26 10:12 | Outpatient (CLI) | payer BC, SELFPAY ==
[2018-10-26 12:18] LABS: Absolute Lymphocyte Count 2.08 X10^3/ul (0.83-4.51); Absolute Neutrophil Count 9.5 X10^3/uL (2.0-7.7); Basophil# 0.03 X10^3/uL; Basophil% 0.2 % (0-1); Eosinophil# 0.04 X10^3/uL; Eosinophils% 0.3 % (0-5); Hematocrit 41.3 % (37-47); Hemoglobin 13.5 g/dl (12.0-15.0); Lymphocyte # 2.08 X10^3/ul (4.0); Lymphocyte % 17.2 % (19-41); Mean Corp Hgb Conc 32.7 g/gl (32-36); Mean Corpuscular Hgb 28.1 pg (27.0-32.0); Mean Corpuscular Volume 85.9 fL (81-99); Mean Platelet Vol. 9.9 fl (6.2-12.0); Monocyte# 0.48 X10^3/uL; Neutrophil # 9.47 X10^3/uL (2.7-7.7); Neutrophil % 78.1 % (47-70); Platelet Count 191 K/mm3 (150-450); RBC Distribution Width CV 13.3 % (11.6-14.6); RBC Distribution Width SD 41.8 fl (35.1-43.9); Red Blood Count 4.81 M/mm3 (4.2-5.4); White Blood Count 12.1 K/mm3 (4.4-11.0)
[2018-10-26 12:19] LABS: POSITIVE COUNT NO; POSITIVE DIFFERENTIAL NO; POSITIVE MORPHOLOGY NO
[2018-10-26 12:23] LABS: Amphetamine Urine VISTA NEGATIVE (<1000 ng/mL); Barbiturate Urine VISTA NEGATIVE (< 200 ng/mL); Benzodiazepine Urine VISTA NEGATIVE (< 200 ng/mL); Cocaine Urine VISTA NEGATIVE (< 300 ng/mL); Ecstacy Urine VISTA NEGATIVE (< 500 ng/mL); Methadone Urine VISTA NEGATIVE (< 300 ng/mL); PCP Urine VISTA NEGATIVE (< 25 ng/mL); THC Urine VISTA NEGATIVE (< 50 ng/mL); Vista UDS pH Range 6
[2018-10-26 12:29] LABS: Thyroid Stim Hormone (TSH) 2.19 uIU/mL (0.358-3.74)
[2018-10-26 12:35] LABS: Color, Urine Yellow (Yellow); Glucose, Dipstick Normal (Normal); Ketone-Dipstick Negative (Negative); Leukocyte Esterase-Dipstick Negative /ul (Negative); Nitrite-Dipstick Negative (Negative); Occult Blood-Urine Negative /ul (Negative); Protein-Dipstick Negative (Negative); Specific Gravity, Urine 1.005 (1.002-1.030); Urine Bilirubin Dipstick Negative (Negative); Urine Clarity Clear (Clear); Urine Urobilinogen Normal (Normal)
[2018-10-26 13:08] LABS: HIV - WCH Non-Reactive (Nonreactive); Rubella IgG 178.6 IU/mL
[2018-10-27 10:57] LABS: HEPATITIS B SURFACE AG Negative (Negative); Hep C Antibodies <0.1 s/co ratio (0.0-0.9)
[2018-10-29 03:31] LABS: Prenatal RPR NONREACTIVE (NONREACTIVE)
== END ==
PROVIDERS: Visit Provider Obstetrics & Gynecology
DX: Z34.81 Encounter for supervision of other normal pregnancy, first trimester (principal)
CPT/HCPCS: 36415; 80307; 81002; 84443; 85025; 86703; 86762; 86803; 87340

== ENCOUNTER → 2019-03-21 | Outpatient (CLI) | payer BC, SELFPAY ==
[2019-03-21 10:56] LABS: Hemoglobin 12.8 g/dl (12.0-15.0); Mean Corp Hgb Conc 32.8 g/gl (32-36); Mean Corpuscular Hgb 29.4 pg (27.0-32.0); Mean Corpuscular Volume 89.4 fL (81-99); Mean Platelet Vol. 10.1 fl (6.2-12.0); Platelet Count 150 K/mm3 (150-450); RBC Distribution Width CV 12.7 % (11.6-14.6); RBC Distribution Width SD 41.1 fl (35.1-43.9); Red Blood Count 4.36 M/mm3 (4.2-5.4); White Blood Count 8.8 K/mm3 (4.4-11.0)
[2019-03-21 11:01] LABS: Scan Indicated on CBC? Y/N NO
[2019-03-21 11:02] LABS: Glucose Challenge Gest 1H 50g 98 mg/dL (70-140)
== END | disposition home or self-care (01) ==
LOC: WOBLAB 08:50
PROVIDERS: Visit Provider Obstetrics & Gynecology
DX: Z34.83 Encounter for supervision of other normal pregnancy, third trimester (principal)
CPT/HCPCS: 36415; 82950; 85027

== ENCOUNTER → 2019-05-17 | Outpatient (CLI) | payer BC, SELFPAY | END | disposition home or self-care (01) | LOC: LABSPEC 13:51 | PROVIDERS: Visit Provider Obstetrics & Gynecology | DX: Z36.85 Encounter for antenatal screening for Streptococcus B (principal) | CPT/HCPCS: 87081 ==

== ENCOUNTER → 2019-05-26 14:58 | Outpatient (CLI) | payer BC, SELFPAY ==
[2019-05-26 15:52] LABS: Hematocrit 42.3 % (37-47); Hemoglobin 14.1 g/dL (12.0-15.0); Mean Corp Hgb Conc 33.3 g/dL (32-36); Mean Corpuscular Hgb 29.7 pg (27.0-32.0); Mean Corpuscular Volume 89.1 fL (81-99); Mean Platelet Vol. 10.9 fl (6.2-12.0); Platelet Count 129 K/mm3 (150-450); RBC Distribution Width CV 12.7 % (11.6-14.6); RBC Distribution Width SD 41.3 fl (35.1-43.9); Red Blood Count 4.75 M/mm3 (4.2-5.4); White Blood Count 10.3 K/mm3 (4.4-11.0)
[2019-05-26 15:59] LABS: Protein, Urine (Random) < 6.0 mg/dL (<11.9)
[2019-05-26 16:26] LABS: ALB/GLOB Ratio 0.7 RATIO (0.9-2.4); AST(SGOT) 14 U/L (15-37); Alanine Aminotransfer ALT/SGPT 14 U/L (13-56); Albumin, Serum 2.7 g/dL (3.2-5.0); Alkaline Phosphatase 162 U/L (45-117); Anion Gap 7 (5-15); BUN 13 mg/dL (7-18); Chloride 107 mmol/L (98-107); Creatinine, Serum 0.76 mg/dL (0.55-1.02); EST Glomerular Filtration Rate 97 mL/min (>60); Est Glom Filt Rate - Afr Amer 118 mL/min (>60); Globulin 3.8 g/dL (2.2-4.2); Glucose 84 mg/dL (74-106); Protein, Total 6.5 g/dL (6.4-8.2); Sodium Level 138 mmol/L (136-145)
== END ==
PROVIDERS: Visit Provider Obstetrics & Gynecology
DX: O13.3 Gestational [pregnancy-induced] hypertension without significant proteinuria, third trimester (principal); Z3A.00 Weeks of gestation of pregnancy not specified
CPT/HCPCS: 36415; 80053; 82570; 84156; 84550; 85027

== ENCOUNTER 2019-05-26 21:50 | Outpatient (CLI) | payer BC, SELFPAY ==
[2019-05-26 22:00] VITALS: BMI 27.2
[2019-05-26] MEDS: Acetaminophen 500 MG Tablet 1000 MG PO (22:53)
[2019-05-27] MEDS: proMETHazine 25 MG Tablet PO (01:01)
--- NOTE | 2019-05-27 09:05 | OB.TRI.NOTE ---
History of Present Illness Date of Service: 05/26/19 Was patient seen by the physician?: Yes Reason For Visit: RLE OUT PIH Date of Service: 05/26/19 Final BIANCA: 06/12/19 Final BIANCA Source: US <20 weeks Gestational age: 37 Weeks and 4 Days History of Present Illness: 23 yo female at 37 4/7 wk EGA presents with CC of elevated BP at home and BONILLA unrelieved by Tylenol Describes 8- BONILLA. Last tylenol taken at approx 1630 and presented approx 2207 Prior induction to C/S due to PIH. Anxious re BONILLA, BP and possible effects on baby. Allergies latex Allergy (Verified 05/26/19 23:05) Rash Physical Exam General: Alert, Cooperative HEENT: Atraumatic, EOMI Abdomen: Soft, Gravid Extremities:: No clubbing, No cyanosis NST - FHR Rate Baby A Baseline: 110-120s avg with accels to 150s no decels Variability:: Moderate Accelerations:: 15 x 15 Decelerations:: None NST Reactive:: Yes, Appropriate for gestational age FHR Category:: Category I Uterine Activity:: Uterine irritability, no regular UCs noted. Impression/Plan 37 4/7 wk with BONILLA Tylenol given Phenergan given Offered and declined OxyIR. Home to rest BPs wnl. after initial one at presentation. Keep next ofc appt.
== END 2019-05-27 00:10 | disposition home or self-care (01) ==
LOC: WPOUT 22:35 → WP 22:36
PROVIDERS: Referring Provider Obstetrics & Gynecology; Visit Provider Obstetrics & Gynecology
DX: O26.893 Other specified pregnancy related conditions, third trimester (principal); R51 Headache; Z91.040 Latex allergy status; R03.0 Elevated blood-pressure reading, without diagnosis of hypertension; Z3A.37 37 weeks gestation of pregnancy
CPT/HCPCS: 59025; 59050; 99218; G0378

== ENCOUNTER 2019-05-27 22:23 | Inpatient (IN) | payer BC, SELFPAY ==
[2019-05-26 22:00] VITALS: BMI 27.2
[2019-05-27 21:07] LABS: Hematocrit 42.1 % (37-47); Hemoglobin 14.1 g/dL (12.0-15.0); Mean Corp Hgb Conc 33.5 g/dL (32-36); Mean Corpuscular Hgb 29.7 pg (27.0-32.0); Mean Corpuscular Volume 88.8 fL (81-99); Mean Platelet Vol. 10.8 fl (6.2-12.0); Platelet Count 138 K/mm3 (150-450); RBC Distribution Width CV 12.5 % (11.6-14.6); RBC Distribution Width SD 40.9 fl (35.1-43.9); Red Blood Count 4.74 M/mm3 (4.2-5.4); White Blood Count 11.7 K/mm3 (4.4-11.0)
[2019-05-27] MEDS: Metoclopramide 10 MG/2 ML Vial IV (21:15)
[2019-05-27 21:22] LABS: ALB/GLOB Ratio 0.8 RATIO (0.9-2.4); AST(SGOT) 16 U/L (15-37); Alanine Aminotransfer ALT/SGPT 13 U/L (13-56); Albumin, Serum 2.8 g/dL (3.2-5.0); Alkaline Phosphatase 158 U/L (45-117); Anion Gap 8 (5-15); BUN 13 mg/dL (7-18); BUN/Creat Ratio 16.8 RATIO (10-20); Chloride 107 mmol/L (98-107); Creatinine, Serum 0.78 mg/dL (0.55-1.02); EST Glomerular Filtration Rate 96 mL/min (>60); Est Glom Filt Rate - Afr Amer 116 mL/min (>60); Globulin 3.7 g/dL (2.2-4.2); Glucose 70 mg/dL (74-106); Potassium 4.2 mmol/L (3.5-5.1); Protein, Total 6.5 g/dL (6.4-8.2); Sodium Level 139 mmol/L (136-145); Uric Acid 4.8 mg/dL (2.6-6.0)
[2019-05-27 21:24] VITALS: BMI 27.8
[2019-05-27 21:27] LABS: Protein, Urine (Random) 7.6 mg/dL (<11.9); Protein:Creat Ratio 237 mg/g CRE (0-200)
[2019-05-27 21:48] LABS: International Normalized Ratio 0.9; Prothrombin Time (Protime)PT. 11.7 SECONDS (11.7-14.9)
--- NOTE | 2019-05-27 22:30 | CT_ITS ---
STUDY: CT BRAIN WITH AND WITHOUT CONTRAST REASON FOR EXAM: Female, 23 years old. Headache for one week. Currently on magnesium sulfate. Concern for venous thrombosis. RADIATION DOSAGE (If Supplied By Facility): CTDIvol = ( 44.99 ) mGy, DLP = ( 1513.48 ) mGycm TECHNIQUE: Transaxial CT imaging of the brain was performed pre and post contrast administration. The examination was performed with intravenous administration of 50ML IV Isovue 370. Individualized dose optimization techniques were used for this CT. COMPARISON: None. FINDINGS: Normal soft tissue structures. Normal calvarium. Normal size ventricles and extra-axial spaces for the patient's age. Normal white matter tracts of the cerebral hemispheres. Normal basal ganglia and thalami. Normal brainstem. Normal cerebellum. Prominent pituitary, 9 mm in height of upper limits of normal for age but still within normal limits. Normal arterial and venous anatomy. In particular the sagittal, sigmoid, straight, deep veins and cavernous sinuses are opacified without evidence of thrombosis. There is no intracranial hemorrhage. There are no findings of an acute ischemic infarction. Normal visualized paranasal sinuses. CT/Brain/Head W/WO Contrast IMPRESSION: Prominent pituitary at the upper limits of normal, 9 mm in height but still within normal limits for this age group. Otherwise, normal brain CT exam. Negative for hemorrhage, hematoma or mass density. Normal contrast portion of the study. In particular no evidence of venous thrombosis. Electronically Signed: Sindhu Munguia MD at 0:01 EDT , Service support ,
[2019-05-27] MEDS: Magnesium Sulfate 4gm/100mL 6 GM/150 ML IV.SOLN. IV (22:42)
[2019-05-27] MEDS: Lactated Ringers 1,000 ML 999 ML IV (22:42)
--- NOTE | 2019-05-27 23:07 | PCM.HP.OB ---
- Problem List (1) Preeclampsia Status: Acute Qualifiers: Trimester: third trimester Qualified Code(s): O14.93 - Unspecified pre-eclampsia, third trimester History Date of Admission: 02/24/18 Final BIANCA: 06/12/19 Final BIANCA Source: US <20 weeks Gestational age: 37 Weeks and 5 Days History of this : This is a 23 year-old, G [2], P [1], at 37 5/7 weeks gestational age with gestational hypertension complains of severe headache times 3-4 days. The headache was not alleviated by tylenol or fiorecet at home. She was given IV Reglan in triage with minimal improvement of headache. + movement. No leaking of fluid, vaginal bleeding or contractions. She has a hx gestational hypertension at the end of her last . Surgical History: Surgical History (Last Updated 05/27/19 @ 23:09 by Jayashree Villeda MD) Previous section Z98.891 Allergies latex Allergy (Verified 05/26/19 23:05) Rash Home Medications: Home Medications Vits [Prenatabs FA ] 1 tablet PO DAILY 01/23/18 Aspirin [Aspir 81] 81 mg PO DAILY 05/26/19 Magnesium 400 mg PO DAILY 05/26/19 Acetaminophen/Butalbital/Caffe [Fioricet] 1 - 2 tab PO Q4H PRN PRN 05/27/19 Smoking Status: Never smoker Alcohol: None Number of Fetus(es): 1 Heart Tracin, moderate variability, + accelerations, + variable decelerations TOCO Analysis: 0/ History Past Pregnancies: Past Pregnancies Delivery Date Name GA/Weeks Outcome Route Weight Infant Gender Labor Length Anesthesia Delivery Location Provider FOB 03/05 Miguel Angel 38 Living C/S 6lb 12 oz M Epidural [facility] Blanka Francesco Labs: Mom's Problem List Problem Status Onset Code Preeclampsia Acute O14.90 Mom's Labs & Results 05/27/19 05/27/19 05/27/19 20:55 20:55 20:55 WBC 11.7 H RBC 4.74 Hgb 14.1 Hct 42.1 MCV 88.8 MCH 29.7 MCHC 33.5 RDW Std Deviation 40.9 RDW Coeff of Denisse 12.5 Plt Count 138 L MPV 10.8 PT 11.7 INR 0.9 APTT 24.0 L Sodium 139 Potassium 4.2 Chloride 107 Carbon Dioxide 24.0 Anion Gap 8 BUN 13 Creatinine 0.78 Est GFR (MDRD) Af Amer 116 Est GFR (MDRD) Non-Af 96 BUN/Creatinine Ratio 16.8 Glucose 70 L Uric Acid 4.8 Calcium 9.0 Total Bilirubin 0.20 AST 16 ALT 13 Alkaline Phosphatase 158 H Total Protein 6.5 Albumin 2.8 L Globulin 3.7 Albumin/Globulin Ratio 0.8 L U Random Total Protein Urine Creatinine Protein/Creatinin Ratio Blood Type Antibody Screen 05/27/19 05/27/19 20:55 20:55 WBC RBC Hgb Hct MCV MCH MCHC RDW Std Deviation RDW Coeff of Denisse Plt Count MPV PT INR APTT Sodium Potassium Chloride Carbon Dioxide Anion Gap BUN Creatinine Est GFR (MDRD) Af Amer Est GFR (MDRD) Non-Af BUN/Creatinine Ratio Glucose Uric Acid Calcium Total Bilirubin AST ALT Alkaline Phosphatase Total Protein Albumin Globulin Albumin/Globulin Ratio U Random Total Protein 7.6 Urine Creatinine 32.10 Protein/Creatinin Ratio 237 H Blood Type A POSITIVE Antibody Screen NEGATIVE Course Did the patient receive Yes care? Labs Blood Type: A RH: POSITIVE RPR/VDRL/Syphilis Nonreactive Rubella status Immune HbSAg Negative Chlamydia Negative Gonorrhea Negative HIV/AIDS Non-Reactive Current Obstetrical History Gestational Diabetes No Incompetent Cervix No Infertility No IUGR No Macrosomia No Hypertension/Pre-eclampsia Yes: borderline Placenta Previa/Abruption No PTL/PROM No Uterine anomaly No Oligohydramnios No Polyhydramnios No Multiple gestation No Past Medical History Asthma No Diabetes No Hypertension No Heart disease No Mitral valve prolapse No Neurologic/Seizure disorder/ No Migraines Kidney disease No Liver disease No Varicosities No Clotting disorders/Hx of DVT No Thyroid Dysfunction No Other medical diseases No Psychiatric disorders No Major trauma No Abnormal PAP smear No Sleep apnea No Mammogram in the last 2 years No Social History Marital Status: Alleged father Francesco Banerjee Hx Smoking No Smoking Status Never smoker Expected Delivery Method: Repeat Section Describe any other labor & delivery plans:: IV Magnesium. CT Head Review of Systems Eyes: Denies: Blurred vision, Vision Change Cardiovascular: Denies: Edema Respiratory: Denies: Shortness of Breath Gastrointestinal: Reports: Nausea. Denies: Abdominal Pain, Vomiting Gynecological: Denies: Vaginal bleeding Neurological: Reports: Headaches. Denies: Focal weakness Physical Exam Vitals: AVSS General: Alert, Oriented x3, Cooperative, No apparent distress HEENT: Atraumatic, Normocephalic Cardiovascular: Regular rate, Regular Rhythm, Normal S1, Normal S2 Lungs: Clear to auscultation, Normal air movement Abdomen: Soft, Non Tender, Non-Distended, Gravid Extremities:: No edema Neurological: Neuro grossly intact, - - No clonus, + 3 b/l LE DTRs, +2 b/l UE DTRs Assessment/Plan All Active Problems Gestational hypertension (Acute) Preeclampsia (Acute) This is a 23 year-old, G [2], P [1001], at 37 5/7 weeks gestational age with preeclampsia with severe features, thrombocytopenia and prior section. -Cat I-II FHR, overall reassuring status -Persistent headache. CT Head ordered. IV Magnesium for seizure prophylaxis -Plan for repeat section. Consents reviewed. -Plan of care reviewed with patient and patient given opportunity to ask questions and questions answered to her satisfaction.
[2019-05-27 23:08] VITALS: PULSE 90; RESP 18; O2SAT 98
[2019-05-27] MEDS: Magnesium Sulfate 20 GM/500 ML BAG IV (23:08)
[2019-05-27] MEDS: Sodium Citrate/Citric Acid 30 ML UDC PO (23:48)
[2019-05-27] MEDS: Lactated Ringers 1,000 ML 100 ML IV (23:50)
[2019-05-28] VITALS (28 sets, daily range): BP systolic 94–156; BP diastolic 50–94; PULSE 60–100; RESP 14–18; TEMP 35.8–36.7; O2SAT 96–100
--- NOTE | 2019-05-28 | PLAC_PTH ---
PATIENT: MAGNOLIA WYNNE LOC: [facility] U#:[id number] AGE/SX: 23/F ROOM: WP012 RE05/27/[address]: Dr. Jayashree Nation MD : [id number] BED: 1 DIS: 05/29/2019 SPEC #: [id number] RECD: 05/28/19 01:31 STATUS: TOBY REQ #: [id number] JENNIFER: 05/28/19 00:[address]: Jayashree Moore DEPT: SURGICAL PATHOLOGY RECD BY: Hussein Curtis ENTERED: 05/30/19 12:06 SP TYPE: PLACENTA OTHR DR: No Primary Care Phys Tissues: Placenta, NOS Procedures: Surgery Specimen Level V HEADER OPERATION: Labor and delivery PRE-OP DIAGNOSIS: Repeat section TISSUE SUBMITTED: Placenta MICROSCOPIC DIAGNOSIS Leonard placenta (486 gm): Umbilical cord - trivascular with no inflammation. Placental membranes - no pathologic diagnosis. Placental disc - Velma-Fidencio change, intravillous congestion and intervillous congestion. AM:srinivas 05/31/19 MICROSCOPIC DESCRIPTION Slides are reviewed. GROSS DESCRIPTION SPECIMEN: PLACENTA / CLINICAL INFORMATION: A. Weight: 2.41 kg B. Gestational Age: 37 weeks C. Sex: Female PLACENTAL WEIGHT (POST FIXATION): 486 gm PLACENTAL DIMENSIONS: 20 x 14 x 2.5 cm PLACENTAL SHAPE: Usual ovoid PLACENTAL WEIGHT FOR GESTATIONAL AGE: Within 10-99th percentile MEMBRANES - Present A. Insertion: Marginal B. Site of rupture from edge: 4 cm from edge of placental disc C. Color of membrane: Florentino-leroy D. Abnormalities: None UMBILICAL CORD - Present A. Color: Florentino-leroy B. Insertion: Eccentric C. Length: 35 cm D. Diameter: 1.5 cm E. Number of vessels: Three F. Abnormalities: None PLACENTAL DISC - Present A. Color of surface: Florentino-leroy B. surface abnormalities: None C. Maternal cotyledons: Intact with minimal tears D. Attached retro placental clot: No clot E. Cut surface: Dark red and spongy F. Lesions: None G. Separate clot: Absent SECTIONS SUBMITTED: 1. Umbilical cord ( end inked) 2. Membrane roll 3. Placental disc, and maternal surfaces 4. Placental disc, and maternal surfaces 5. Placental disc, and maternal surfaces AM:srinivas 05/30/19 TC:5 CPT: 83190
[2019-05-28] MEDS: Cefazolin 2 GM in 0.9% Normal Saline 100 ML IV (00:14)
[2019-05-28] MEDS: Oxytocin 30 units/NS 500 ml 30 UNITS/500 ML IV.SOLN 167 UNITS IV (00:38)
[2019-05-28] MEDS: Carboprost Tromethamine 250 MCG/ML Ampul IM (00:40)
--- NOTE | 2019-05-28 01:24 | OP.PCM_ITS ---
Problem List (1) Preeclampsia Status: Acute Qualifiers: Trimester: third trimester Qualified Code(s): O14.93 - Unspecified pre- eclampsia, third trimester Report of Operation Date of Procedure: 05/28/19 Pre-Operative Diagnosis: 37 6/7wga, preeclampsia with severe features Post-Operative Diagnosis: 37 6/7wga, preeclampsia with severe features Surgery/Procedure Performed:: Repeat low transverse section Description of Surgical Findings:: Normal tubes and ovaries animal health technician: Tan Medina Type of Anesthesia:: Spinal Anesthesiologist: Temo Baker Specimen's removed: placenta Drains: 1000 ml urine Estimated Blood Loss (mL): 800 Fluids Replaced: 700mL Description of Procedure: The patient was taken to the operating room and signed and was performed. spinal analgesia was administered. She is placed in a dorsal supine position with left lateral tilt. The perineum and abdomen were prepped and draped in sterile fashion. And the spinal was found to be adequate. A Pfannenstiel incision was made using a scalpel and brought down to incise the subcutaneous tissue and rectus fascia at the midline. Subcutaneous tissue was bluntly dissected off the fascia laterally. The fascial incision was dissected laterally and cephalad using curved Real scissors. The superior leaflet of the rectus fascia was grasped using Karrie clamps and bluntly dissected and sharply dissected from the underlying rectus muscle. In a similar fashion the inferior rectus fascia was dissected from the underlying muscle. The rectus muscles were bluntly at the midline. The peritoneum was identified and entered [sharply]. The bladder blade was placed into the abdomen and the vesicouterine peritoneal fold identified. The fold was incised and a bladder flap created. Bladder blade was then repositioned to the abdomen. A low transverse hysterotomy was made using the [Metzenbaum scissors] to level of the membranes. The hysterotomy was extended bluntly cephalad and caudad. The membranes were then ruptured revealing clear fluid. The head was elevated and brought to the level of the hysterotomy and the delivered revealing vigorous [female] infant. The cord was doubly clamped and cut after approximately 60 seconds. The infant was passed to awaiting [nursery personnel]. The placenta was [expressed] from the uterus and appeared intact on inspection. The uterus was cleared of debris. The hysterotomy was then repaired using 0 Vicryl running lock suture. A second imbricating layer was also placed for additional hemostasis. The bladder blade was removed. The anterior cul-de-sac was cleared of debris. The peritoneum and rectus muscles were reapproximated using 2-0 Vicryl running suture. The rectus fascia was closed using 0 Vicryl running suture. Small capillary bleeding in the subcutaneous tissue was controlled using the Bovie device. The subcutaneous tissue was reapproximated using 2-0 Vicryl. The skin was closed using 4-0 Monocryl subcuticularly. A Mepilex occlusive dressing was placed over the incision. The fundus was firm. The patient was then transferred to the recovery room without complication. Sponge, instrument, and needle counts were correct ?2. - Complications None - Admit VTE Documentation VTE Present on Admission: No VTE Mechan Device Prophylaxis: SCD's VTE Pharm Prophylaxis ordered?: No Delivery Classification: ABBY Final BIANCA: 06/12/19 Final BIANCA Source: US <20 weeks Gestational age: 37 Weeks and 6 Days doctor who attended delivery (if requested by OB): Cristina Morgan Indications: 23-year-old 2 para 1-0-0-1 admitted at 37-5/7 weeks gestational age with persistent severe headache in the setting of mild hypertension. She had a history of prior section and plan for repeat. Risks, benefits, indicat ions of procedure were reviewed at length patient desired to proceed. The patient was given opportunity ask questions and questions were answered to her satisfaction. Indications for : Repeat Elective Amniotic Membrane Rupture Type: Artificial Amniotic Fluid Description: Clear Placenta Disposition: [facility] Drain: Bernstein to straight drain Cord Entanglement: None Nuchal Cord Compression: Without compression Cord Vessel Description: 3 Vessels Gender: Female (1 minute): 9 (5 minute): 9 Delayed cord clamping: Yes Pre-op Antibiotic Given: Ancef 2 grams IV x1 Pt instructed on risks of surgery: Bleeding, Anesthesia Risks, Infection, Need for Future C-Sections, Injury to surrounding structure(s) including bowel and bladder Complications: None - Admit VTE Documentation VTE Present on Admission: No VTE Mechan Device Prophylaxis: SCD's
[2019-05-28] MEDS: Acetaminophen 500 MG Tablet 1000 MG PO (03:03)
[2019-05-28] MEDS: Lactated Ringers 1,000 ML 100 ML IV (04:47)
--- NOTE | 2019-05-28 05:34 | PCM.PN.OB ---
Patient Problems: Active and Suspected Problems Preeclampsia (Acute) Subjective: Headache improved but persists. Denies nausea, vomiting, vision changes, shortness of breath or chest pain. c/o generalized and gordon-oral itching. Objective: AVSS, BPs 129-154/66-94 HR 70s - Physical Exam General: Alert, Oriented x3, Cooperative, No apparent distress HEENT: Atraumatic, Normocephalic Lungs: Clear to auscultation, Normal air movement Cardiovascular: Regular rate, Regular Rhythm, Normal S1, Normal S2 Abdomen: Soft, Non Tender, Non-Distended, - - Fundus firm and nontender, incisional dress with minimal saturation Extremities: No edema, No Calf Tenderness Neurological: Deep Tendon Reflexes 2+/4 and Symmetrical, Neuro grossly intact, - - no clonus Psych/Mental Status: Normal Affect, Appropriate, Alert and oriented to time, place, person, mood and affect Vital Signs Temp Pulse Resp BP Pulse Ox 97.3 F L 74 16 154/82 H 98 05/28/19 03:33 05/28/19 03:33 05/28/19 03:33 05/28/19 03:33 05/28/19 03:33 Oxygen Delivery Method Room Air Weight: 67 kg Body Mass Index (BMI) 27.8 Intake and Output for Last 24 Hours 05/26/19 05/27/19 05/28/19 23:59 23:59 23:59 Intake Total 2150 / 2150 Output Total 1650 / 1650 Balance 500 / 500 Laboratory Tests Past 24 Hrs 05/27/19 05/27/19 05/27/19 20:55 20:55 20:55 WBC 11.7 H RBC 4.74 Hgb 14.1 Hct 42.1 MCV 88.8 MCH 29.7 MCHC 33.5 RDW Std Deviation 40.9 RDW Coeff of Denisse 12.5 Plt Count 138 L MPV 10.8 PT 11.7 INR 0.9 APTT 24.0 L Sodium 139 Potassium 4.2 Chloride 107 Carbon Dioxide 24.0 Anion Gap 8 BUN 13 Creatinine 0.78 Est GFR (MDRD) Af Amer 116 Est GFR (MDRD) Non-Af 96 BUN/Creatinine Ratio 16.8 Glucose 70 L Uric Acid 4.8 Calcium 9.0 Total Bilirubin 0.20 AST 16 ALT 13 Alkaline Phosphatase 158 H Total Protein 6.5 Albumin 2.8 L Globulin 3.7 Albumin/Globulin Ratio 0.8 L U Random Total Protein Urine Creatinine Protein/Creatinin Ratio Blood Type Antibody Screen 05/27/19 05/27/19 20:55 20:55 WBC RBC Hgb Hct MCV MCH MCHC RDW Std Deviation RDW Coeff of Denisse Plt Count MPV PT INR APTT Sodium Potassium Chloride Carbon Dioxide Anion Gap BUN Creatinine Est GFR (MDRD) Af Amer Est GFR (MDRD) Non-Af BUN/Creatinine Ratio Glucose Uric Acid Calcium Total Bilirubin AST ALT Alkaline Phosphatase Total Protein Albumin Globulin Albumin/Globulin Ratio U Random Total Protein 7.6 Urine Creatinine 32.10 Protein/Creatinin Ratio 237 H Blood Type A POSITIVE Antibody Screen NEGATIVE Medical Necessity - Tobacco Use Smoking Status: Never smoker Assessment/Plan All Active Problems Gestational hypertension (Acute) Preeclampsia (Acute) This is a 23 year-old, G [2], P [2001] s/p RLTCS with preeclampsia on magnesium. -Headache improving -Continue magnesium -Breast feeding -Routine postop care
[2019-05-28 05:41] LABS: Pathology Specimen OB SEE PATHOLOGY REPORT
[2019-05-28] MEDS: Cefazolin 1 GM/50 ML BAG IV ×2 (07:40→16:36)
--- NOTE | 2019-05-28 07:52 | NURSING ---
0025 Magnesium Sulfate turned off by anesthesia during and then restarted once pt back in room per dr will order at 0150.
[2019-05-28] MEDS: Ondansetron 4 MG/2 ML Vial IV (08:15)
[2019-05-28] MEDS: Magnesium Sulfate 20 GM/500 ML BAG IV (11:01)
[2019-05-28] MEDS: Ketorolac 30 MG/ML Syringe IV ×2 (13:28→18:14)
[2019-05-28] MEDS: 0.9% Saline Lock 10 ML Syringe IV (16:43)
[2019-05-29] MEDS: 0.9% Saline Lock 10 ML Syringe IV ×4 (00:02→06:06)
--- NOTE | 2019-05-29 00:38 | NURSING ---
2350 pt has been up and tried to void x3,then showered and was unsuccessful. straight cathed for 1000cc then pt up and taking a walk in the [place].
[2019-05-29] MEDS: Acetaminophen 500 MG Tablet 1000 MG PO ×2 (04:07→17:44)
[2019-05-29] MEDS: Senna/Docusate Sodium 1 Tablet PO (04:08)
[2019-05-29 04:10] VITALS: BP 150/92; PULSE 70; RESP 16; TEMP 36.7
[2019-05-29 06:00] VITALS: BP 108/69
[2019-05-29] MEDS: Ketorolac 30 MG/ML Syringe IV ×3 (06:03→12:12)
[2019-05-29 06:31] LABS: Mean Corp Hgb Conc 34.3 g/dL (32-36); Mean Corpuscular Hgb 30.8 pg (27.0-32.0); Mean Corpuscular Volume 89.7 fL (81-99); Mean Platelet Vol. 10.3 fl (6.2-12.0); Platelet Count 118 K/mm3 (150-450); RBC Distribution Width CV 12.7 % (11.6-14.6); RBC Distribution Width SD 41.7 fl (35.1-43.9); White Blood Count 13.8 K/mm3 (4.4-11.0)
[2019-05-29 08:10] VITALS: BP 121/83; PULSE 68; RESP 16; TEMP 36.8
--- NOTE | 2019-05-29 09:01 | PCM.PN.OB ---
Patient Problems: Active and Suspected Problems Preeclampsia (Acute) Subjective: Headache resolved. Denies nausea. Tolerates PO. Pain well controlled. OOB. Denies heavy lochia. Objective: AVSS - Physical Exam General: Alert, Oriented x3, Cooperative, No apparent distress HEENT: Atraumatic, Normocephalic Lungs: Clear to auscultation, Normal air movement Cardiovascular: Regular rate, Regular Rhythm Abdomen: Soft, Non Tender, Non-Distended, - - fundus firm and nontender, incisional dressing unchanged from prior with miniscule saturation Extremities: No edema, No Calf Tenderness Neurological: Neuro grossly intact Psych/Mental Status: Normal Affect, Appropriate, Alert and oriented to time, place, person, mood and affect Comment: Lochia scant Vital Signs Temp Pulse Resp BP Pulse Ox 98.1 F 70 16 108/69 98 05/29/19 04:10 05/29/19 04:10 05/29/19 04:10 05/29/19 06:00 05/28/19 23:50 Oxygen Delivery Method Room Air Weight: 67 kg Body Mass Index (BMI) 27.8 Intake and Output for Last 24 Hours 05/27/19 05/28/19 05/29/19 23:59 23:59 23:59 Intake Total 5300 / 5300 Output Total 6225 / 6225 1999 Balance -925 / -925 -1999 Laboratory Tests Past 24 Hrs 05/29/19 06:20 WBC 13.8 H RBC 3.90 L Hgb 12.0 Hct 35.0 L MCV 89.7 MCH 30.8 MCHC 34.3 RDW Std Deviation 41.7 RDW Coeff of Denisse 12.7 Plt Count 118 L MPV 10.3 Medical Necessity - Tobacco Use Smoking Status: Never smoker Assessment/Plan All Active Problems Gestational hypertension (Acute) Preeclampsia (Acute) This is a 23 year-old, G [2], P [2002] POD#1 s/p RLTCS with preeclampsia -s/p IV magnesium, sx resolved and BPs normal to mildly elevated -mild thrombocytopenia, H/H stable -No si/sx worsening preeclampsia -Routine postop care -
--- NOTE | 2019-05-29 09:13 | DCINST_ITS ---
Discharge Diet: No Restrictions Discharge Activity: Return to Normal Activity, May not drive while taking narcotic pain medications., May Shower May resume sexual activity in: 4-6 weeks Lifting Restrictions: 10-20lb Call your doctor if your incision/area has: Continuous Slow Oozing, Sudden Increased Bleeding, Increased Pain/ Swelling, Increased Redness, Foul Smelling Discharge Suture Line Care: Avoid Pulling/Pushing Remove Dressing in (days):: 2 Cleanse incision/area with: Soap & Water Additional Instructions: If you experience any of the following, contact your healthcare provider. * Bleeding that soaks a pad every hour for 2 hours * Fever 100.4 or higher * Unrelieved incision or abdominal pain * Swelling, redness, discharge or bleeding from your incision or episiotomy site * Your incision begins to separate * Problems urinating (including inability to urinate or burning while urinating). * Visual changes * Severe headache * Flu-like symptoms * Pain or redness in one of both of your breasts * Pain, warmth, tenderness or swelling in your legs, especially the calf area * Frequent nausea and vomiting * Symptoms of depression or anxiety If you experience any of the following, call 911 or go to the nearest Emergency Room. * Chest pain * Problems breathing * Seizure activity * Partial or complete paralysis of a body part, slurred speech, weakness or drooping of the face, or a sudden inability to walk or hold your balance Allergies/Adverse Reactions: Allergies latex Allergy (Verified 05/26/19 23:05) Rash Medications to take at Discharge Vits [Prenatabs FA ] 1 tablet PO DAILY 01/23/18 Magnesium 400 mg PO DAILY 05/26/19 Ibuprofen 600 mg PO TID PRN #30 tab 05/29/19 Oxycodone [Oxyir] 1 - 2 tab PO Q6H PRN 7 Days #20 tab 05/29/19 Senna/Docusate Sodium [Senokot-S] 1 - 2 tab PO DAILY PRN #60 tab 05/29/19 The following prescriptions were given: Ibuprofen 600 mg PO TID PRN #30 tab PRN Reason: Pain Transmission Status: Pending to [facility]/pharmacy #[id number] Oxycodone [Oxyir] 1 - 2 tab PO Q6H PRN 7 Days #20 tab PRN Reason: Mod-Severe Pain (-07/28) Transmission Status: Received by [facility] #[id number] Senna/Docusate Sodium [Senokot-S] 1 - 2 tab PO DAILY PRN #60 tab PRN Reason: Constipation Transmission Status: Pending to [facility][id number] Follow-Up: Call to make an appointment with your doctor for an incision check in 1-2 weeks. You will also need a 6 week post- follow up appointment. Test results from this visit will be discussed in further detail at your follow- up appointment, if applicable. Please Follow Up With: Skylar Moscoso MD - incision check When: 1-2 weeks Please Follow Up With: Skylar Moscoso MD - visit When: 6 weeks Primary Care Physician: Care Physician,No Primary [Primary Care Provider] -
[2019-05-29] MEDS: Prenatal Vits Tablet 1 TABLET PO (12:13)
[2019-05-29 13:55] VITALS: BP 137/83; PULSE 71; RESP 14; TEMP 36.9
[2019-05-29 17:10] VITALS: BP 135/93; PULSE 69; RESP 18; TEMP 37.1
--- NOTE | 2019-05-29 18:23 | PCM.DC.SUM ---
Discharge Date and Diagnosis - Problem List Patient Problems: Active and Suspected Problems Preeclampsia (Acute) Date of Admission: 05/27/19 Date of Discharge: 05/29/19 - Primary Discharge Diagnosis Active and Suspected Problems Preeclampsia (Acute) Hospital Course and Treatment Operations: - - Repeat low transverse section Procedures: None Summary of Care Provided: The patient is a 23 year old F admitted with preeclampsia with severe features. She underwent a repeat low tranverse section and received magnesium IV. She had improvement of symptoms and magnesium was discontinued. Her postop course was otherwise unremarkable. She was discharged to home on postop day #1. Patient Problems: Active and Suspected Problems Preeclampsia (Acute) - Physical Exam Vital Signs Temp Pulse Resp BP Pulse Ox 98.8 F 69 18 135/93 H 98 05/29/19 17:10 05/29/19 17:10 05/29/19 17:10 05/29/19 17:10 05/28/19 23:50 Oxygen Delivery Method Room Air Weight: 67 kg Body Mass Index (BMI) 27.8 Intake and Output for Last 24 Hours 05/27/19 05/28/19 05/29/19 23:59 23:59 23:59 Intake Total 5300 / 5300 Output Total 6225 / 6225 1999 Balance -925 / -925 -1999 Laboratory Tests Past 24 Hrs 05/29/19 06:20 WBC 13.8 H RBC 3.90 L Hgb 12.0 Hct 35.0 L MCV 89.7 MCH 30.8 MCHC 34.3 RDW Std Deviation 41.7 RDW Coeff of Denisse 12.7 Plt Count 118 L MPV 10.3 Discharge Diet: No Restrictions Discharge Activity: Return to Normal Activity, May not drive while taking narcotic pain medications., May Shower May resume sexual activity in: 4-6 weeks Call your doctor if your incision/area has: Continuous Slow Oozing, Sudden Increased Bleeding, Increased Pain/ Swelling, Increased Redness, Foul Smelling Discharge Suture Line Care: Avoid Pulling/Pushing Remove Dressing in (days):: 2 Cleanse incision/area with: Soap & Water Home Medications: Medications to take at Discharge Vits [Prenatabs FA ] 1 tablet PO DAILY 01/23/18 Magnesium 400 mg PO DAILY 05/26/19 Ibuprofen 600 mg PO TID PRN #30 tab 05/29/19 Oxycodone [Oxyir] 1 - 2 tab PO Q6H PRN 7 Days #20 tab 05/29/19 Senna/Docusate Sodium [Senokot-S] 1 - 2 tab PO DAILY PRN #60 tab 05/29/19 Following Prescrptions Were Given to Patient: Ibuprofen 600 mg PO TID PRN #30 tab PRN Reason: Pain Transmission Status: Received by [id number] Oxycodone [Oxyir] 1 - 2 tab PO Q6H PRN 7 Days #20 tab PRN Reason: Mod-Severe Pain (4-07/28) Transmission Status: Received by [id number] Senna/Docusate Sodium [Senokot-S] 1 - 2 tab PO DAILY PRN #60 tab PRN Reason: Constipation Transmission Status: Received by [id number] Primary Care Physician: Care Physician,No Primary [Primary Care Provider] - Please Follow Up With: Skylar Moscoso MD - incision check When: 1-2 weeks Please Follow Up With: Skylar Moscoso MD - visit When: 6 weeks Medical Necessity - Tobacco Use Smoking Status: Never smoker Meaningful Use Info Meaningful Use Diagnoses (Choose all that apply): None applicable
--- NOTE | 2019-06-02 18:43 | NURSING ---
No answer on follow up phone call. Message left.
== END 2019-05-29 18:45 | disposition home or self-care (01) | DRG 787 ==
LOC: WPOUT 22:26 → WP 22:26
PROVIDERS: Admitting Provider Obstetrics & Gynecology; Referring Provider Obstetrics & Gynecology; Visit Provider Obstetrics & Gynecology
DX: O34.211 Maternal care for low transverse scar from previous cesarean delivery (principal); O99.12 Other diseases of the blood and blood-forming organs and certain disorders involving the immune mechanism complicating childbirth; Z37.0 Single live birth; O14.14 Severe pre-eclampsia complicating childbirth; Z3A.37 37 weeks gestation of pregnancy; D69.6 Thrombocytopenia, unspecified
CPT/HCPCS: 59025; 59050; 70470; 80053; 82570; 84156; 84550; 85027; 85610; 85730; 86850; 86900; 88307; 99218; J7120; Q9967; A4216; G0378; J2405

== ENCOUNTER → 2019-07-04 | Outpatient (CLI) | payer BC, SELFPAY ==
[2019-07-07 15:57] LABS: HPV Reflexed? NOT INDICATED
== END | disposition home or self-care (01) ==
LOC: LABSPEC 13:56
PROVIDERS: Visit Provider Obstetrics & Gynecology
DX: Z12.4 Encounter for screening for malignant neoplasm of cervix (principal)
CPT/HCPCS: 88175; G0145